=== PATIENT | female | born 1995 | race Caucasian/White ===

== ENCOUNTER 2018-01-13 18:26 | Emergency (ER) | payer MEDICAID, OTHER ==
[2018-01-13] MEDS ORDERED: NACL 0.9% 1000 ML 0 ML ONE (20:09)
--- NOTE | 2018-01-13 20:55 | Emergency Department Report ---
ED General Adult HPI - General Chief complaint: Medical Clearance Stated complaint: NOSE PAIN Time Seen by Provider: 01/13/18 20:53 Source: patient Mode of arrival: Ambulatory Limitations: No Limitations - History of Present Illness Initial comments: 22-year-old female Patient here reports that she was at work working at [employer] and was hit in the face specifically the nose with the velocity dry are positive. She is here for Worker's Comp. and reported in nasal pain at 7 out of 10. Nothing makes it better nothing makes it worse. She did not take any medication prior to coming to the hospital. Denies any headache, nausea or vomiting. Denies any loss of consciousness. Denies any neck pain. MD Complaint: injury to nose -: This evening Location: face (nose) Radiation: non-radiation Severity scale (0 -10): 7 Quality: aching Consistency: constant Improves with: none Worsens with: none Associated Symptoms: denies: confusion, chest pain, cough, diaphoresis, fever/ chills, headaches, loss of appetite, malaise, nausea/vomiting, rash, seizure, shortness of breath, syncope, weakness Treatments Prior to Arrival: none - Related Data Previous Rx's Medication Instructions Recorded Last Taken Type oxyCODONE /ACETAMINOPHEN [Percocet 1 tab PO Q6HR PRN #15 tablet 05/05/13 Unknown Rx 5/325 mg] Ibuprofen [Motrin] 600 mg PO Q8H PRN #15 tablet 01/13/18 Unknown Rx Allergies Allergy/AdvReac Type Severity Reaction Status Date / Time No Known Allergies Allergy Verified 05/04/13 19:13 ED Review of Systems ROS: Stated complaint: NOSE PAIN Other details as noted in HPI Constitutional: denies: chills, fever Eyes: denies: eye pain, eye discharge, vision change ENT: other (pain 10 nose from injury). denies: ear pain, throat pain, dental pain, hearing loss, epistaxis, congestion Respiratory: denies: cough, orthopnea, shortness of breath, SOB with exertion, SOB at rest, stridor, wheezing Cardiovascular: denies: chest pain, palpitations, edema, syncope Gastrointestinal: denies: nausea, vomiting Musculoskeletal: arthralgia (nasal bone). denies: back pain, joint swelling, myalgia Skin: denies: rash, lesions Neurological: denies: headache, weakness ED Past Medical Hx - Past Medical History Previous Medical History?: No Hx Hypertension: No Hx Heart Attack/AMI: No Hx Diabetes: No Hx Deep Vein Thrombosis: No Hx Liver Disease: No Hx Renal Disease: No Hx Sickle Cell Disease: No Hx Seizures: No Hx Asthma: No Hx COPD: No Hx Tuberculosis: No Hx HIV: No - Surgical History Past Surgical History?: No - Family History Family history: no significant - Social History Smoking Status: Never Smoker Substance Use Type: None - Medications Home Medications: Home Medications Medication Instructions Recorded Confirmed Last Taken Type oxyCODONE /ACETAMINOPHEN [Percocet 1 tab PO Q6HR PRN #15 tablet 05/05/13 Unknown Rx 5/325 mg] Ibuprofen [Motrin] 600 mg PO Q8H PRN #15 tablet 01/13/18 Unknown Rx ED Physical Exam - General Limitations: No Limitations General appearance: alert, in no apparent distress - Head Head exam: Present: atraumatic, normocephalic, normal inspection, other (normal exam) - Eye Eye exam: Present: normal appearance, PERRL, EOMI. Absent: conjunctival injection, nystagmus, periorbital swelling, periorbital tenderness Pupils: Present: normal accommodation - ENT ENT exam: Present: normal exam, normal orophraynx, mucous membranes moist, TM's normal bilaterally, normal external ear exam, other (tenderness to palpate to nasal septum with mild erythema and mild swelling.) - Neck Neck exam: Present: normal inspection, full ROM, other (no cspine tenderness). Absent: tenderness, meningismus, lymphadenopathy - Respiratory Respiratory exam: Present: normal lung sounds bilaterally. Absent: respiratory distress, wheezes, rales, rhonchi, stridor, chest wall tenderness, accessory muscle use, decreased breath sounds, prolonged expiratory - Cardiovascular Cardiovascular Exam: Present: regular rate, normal rhythm, normal heart sounds, gallop. Absent: systolic murmur, diastolic murmur - GI/Abdominal GI/Abdominal exam: Present: soft, normal bowel sounds. Absent: tenderness - Extremities Exam Extremities exam: Present: normal inspection, full ROM, normal capillary refill , other (NO CCE +2 pulses). Absent: tenderness, pedal edema, joint swelling, calf tenderness - Back Exam Back exam: Present: normal inspection, full ROM, other (Ambulates without diffulties). Absent: tenderness, CVA tenderness (R), CVA tenderness (L), muscle spasm, paraspinal tenderness, vertebral tenderness, rash noted - Neurological Exam Neurological exam: Present: alert, oriented X3, normal gait, reflexes normal. Absent: motor sensory deficit - Psychiatric Psychiatric exam: Present: normal affect, normal mood - Skin Skin exam: Present: warm, dry, intact, normal color, erythema (mild swelling and TTP nose). Absent: rash ED Course Vital Signs 01/13/18 01/13/18 01/13/18 18:36 21:03 23:17 Temperature 99.2 F Pulse Rate 108 H 72 Respiratory 18 18 Rate Blood Pressure 117/73 Blood Pressure [Left] O2 Sat by Pulse 95 Oximetry 01/13/18 23:58 Temperature Pulse Rate 94 H Respiratory 18 Rate Blood Pressure Blood Pressure 118/76 [Left] O2 Sat by Pulse 97 Oximetry - Reevaluation(s) Reevaluation #1: 01/13/18 23:07 Patient given motrin 800mg po x1 dose. Pain relieved ED Medical Decision Making - Radiology Data Radiology results: report reviewed See CT scan report below which was dictated by radiologist Patient: MOLLY SANCHEZ MR#: [id number] : 1995 Acct:[id number] Age/Sex: 22 / F ADM Date: 01/13/18 Loc: ED Attending Dr: Ordering Physician: AISHA PURCELL Date of Service: 01/13/18 Procedure(s): CT facial bones wo con Accession Number(s): [id number] cc: AISHA PURCELL FINAL REPORT PROCEDURE: CT FACIAL BONES WO CON TECHNIQUE: Computerized tomography of the facial bones and soft tissues with axial and coronal sections performed from the cranial aspect of the frontal sinuses to the caudal portion of the mandible without contrast material. HISTORY: facial injury. with nasal apin ans swelling COMPARISON: No prior studies are available for comparison. FINDINGS: Bones: No significant abnormality. Paranasal sinuses: Clear. Soft tissues: No significant abnormality. Other: There is moderate degree deviation of the nasal septum to the right with spur formation. There is evidence of bilateral palatine tonsillar hypertrophy.. IMPRESSION: No acute fracture Tonsillar hypertrophy. Deviation of nasal septum to the right with spur formation. Transcribed By: UBC Dictated By: PRISCILA GUAMAN Electronically Authenticated By: PRISCILA GUAMAN Signed Date/Time: 01/13/182143 DD/ 43 TD/TT: 01/13/182143 - Medical Decision Making This is a 22-year-old female here after reporting accident at work where she was hit in the face with an object accidentally after cleaning padded [employer]. She is a port in nasal bone pain and swelling. Denies any loss of consciousness or head injury. She had some nasal bleed and after the incident but she doesn't have any now. I examined patient and Physical Findings for mild swelling to nasal septum with tenderness to palpate otherwise all other facial bones are intact without any tenderness. She is neurologically intact and her nasal turbinates are without bleeding. CT scan of the facial bones dictated by radiologist's and reviewed by myself and no acute findings and no bony abnormalities. There are incidental findings for nasal septum deviation and tonsillar hypertrophy. I discussed results of CT findings with patient and she voiced understanding. A/P Clinical Impression: 1:Musculoskeletal pain-better with pain medication. Patient was given Motrin 800 mg in the emergency room and will be discharged home in Motrin. 2:Nasal contusion-I discussed the patient she needs to apply cool compresses to affected area several times a day to reduce swelling to nose Incidental findings on CT scan for nasal septum deviation which patient is already aware of. She is also with tonsillar hypertrophy but she does not have any signs of infection her tonsils are enlarged but uvula is midline and oral airways patent. Patient referred to ear nose and throat doctor and also to follow-up with her primary care physician. Educated on medication, treatment plan, diagnosis and CT scan findings that she voiced understanding. Patient is stable and discharged home in stable condition with prescription for Motrin and to follow-up with ear nose and throat doctor on a primary care physician. Her pain is controlled and she says she feels better and she voiced understanding of discharge instructions and treatment plan and I discussed with her if she has worsening symptoms she can return to the emergency room but if not the plan to schedule an appointment with her primary care and ear nose throat as instructed and she voiced understanding. - Differential Diagnosis nasal bone fracture, nasal contusion, nasal pain Critical care attestation.: If time is entered above; I have spent that time in minutes in the direct care of this critically ill patient, excluding procedure time. ED Disposition Clinical Impression: Musculoskeletal pain Nasal contusion Qualifiers: Encounter type: initial encounter Qualified Code(s): S00.33XA - Contusion of nose, initial encounter Disposition: TO HOME OR SELFCARE Is pt being admited?: No Does the pt Need Aspirin: No Condition: Stable Instructions: Contusion in Adults (ED), Musculoskeletal Pain (ED) Additional Instructions: Apply ice to affected area Take Motrin as needed for pain Follow up with ENT for deviated nasal septum return to ED if symptoms worsens Prescriptions: Ibuprofen [Motrin] 600 mg PO Q8H PRN #15 tablet PRN Reason: Pain Referrals: PRIMARY CARE, [Primary Care Provider] - 2-3 Days JENAE HTAFIELD MD [Staff Physician] - 2-3 Days Forms: Work/School Release Form(ED)
[2018-01-13] MEDS ORDERED: MOTRIN PO ONE (20:56)
--- NOTE | 2018-01-13 21:48 | Cat Scan Report ---
FINAL REPORT PROCEDURE: CT FACIAL BONES WO CON TECHNIQUE: Computerized tomography of the facial bones and soft tissues with axial and coronal sections performed from the cranial aspect of the frontal sinuses to the caudal portion of the mandible without contrast material. HISTORY: facial injury. with nasal apin ans swelling COMPARISON: No prior studies are available for comparison. FINDINGS: Bones: No significant abnormality. Paranasal sinuses: Clear. Soft tissues: No significant abnormality. Other: There is moderate degree deviation of the nasal septum to the right with spur formation. There is evidence of bilateral palatine tonsillar hypertrophy.. IMPRESSION: No acute fracture Tonsillar hypertrophy. Deviation of nasal septum to the right with spur formation.
[2018-01-13 23:58] VITALS: BP 118/76
== END 2018-01-13 23:58 | disposition home or self-care (01) ==
LOC: ED 18:26
DX: S00.33XA Contusion of nose, initial encounter (principal); M79.1 Myalgia; W22.8XXA Striking against or struck by other objects, initial encounter; Y93.89 Activity, other specified; Y99.8 Other external cause status; Y92.89 Other specified places as the place of occurrence of the external cause
CPT/HCPCS: 70486; J7030